=== PATIENT | female | born 1980 | race Caucasian/White ===

== ENCOUNTER 2016-05-31 15:18 | Emergency (ER) | payer BC ==
--- NOTE | 2016-06-08 18:52 | ER ---
ADMIT: 05/31/2016 RM/LOC: ER [facility] MR#: [id number] [id number] [place], [place] [address] CHANDNI ISSA [address] [place] [address] Emergency Room Report SEX: F AGE: 36 : 1980 DATE: 05/31/2016 ADDENDUM: The patient comes into the ER because she states she has had vomiting and diarrhea and abdominal pain for the last week. Since she has had her gallbladder out, it is normal for her to have diarrhea, but the vomiting and nausea are different. She has had an ovarian cyst in the past, and this is what it reminds her of. The pain she has is on the left side of her abdomen. She denies any fevers. On physical exam, she is tender in the left lower quadrant. No rebound tenderness or guarding. No tenderness to percussion from either flank area. Ultrasound was negative for an ovarian torsion and CAT scan was negative for diverticulitis. Her white count was 11.4. She did have ketones in her urine. IV of normal saline was started. She was given 1 L of bolus with Zofran and Toradol. I did let her know the results of the labs. I wrote a prescription for Zofran. If she is not feeling better in the next couple of days, she will need to follow up with Dr. Dominguez. Please see my T-sheet. ULISES Suarez / Jamison Estes MD / luis daniell JOB #: [id number] CC: Jamison Estes MD, Attending Physician Dr. Dominguez, Family Physician
== END 2016-05-31 19:10 | disposition home or self-care (01) ==
LOC: ER 15:18
DX: R10.32 Left lower quadrant pain (principal); F17.210 Nicotine dependence, cigarettes, uncomplicated; Z88.1 Allergy status to other antibiotic agents; Z88.8 Allergy status to other drugs, medicaments and biological substances; Z79.899 Other long term (current) drug therapy

== ENCOUNTER 2016-08-05 18:40 | Emergency (ER) | payer SELFPAY ==
--- NOTE | 2016-08-08 13:48 | ER ---
ADMIT: 08/05/2016 RM/LOC: ER [facility] MR#: [id number] [address] [place], [place] [address] CHANDNI ISSA [address] [place] [address] Emergency Room Report SEX: F AGE: 36 : 1980 DATE: 08/05/2016 CHIEF COMPLAINT: Headache. HISTORY OF PRESENT ILLNESS: This is a 36-year-old, white female, who presents with 2 days of worsening headache. States she has been managing this headache for the past 2 days with Tylenol and ibuprofen, acutely worse. Today, rates it a 10/10, describes it as the worst of her life. Gradual onset, woke her up from sleep. Does feel very similar to her previous headache. States she has a migraine disorder associated with some nausea, sensitivity to light and movement. No fevers, chills, or problems with vision. No aura. No neck pain, weakness, numbness or tingling in the extremities. COURSE IN THE EMERGENCY ROOM: The patient was seen and examined. GENERAL: Afebrile and nontoxic. No acute distress. She is alert. HEENT: Extraocular muscles are intact. Pupils are equal and reactive. She does have some photophobia. NECK: Soft and supple. She has good range of motion. CHEST: Clear. HEART: Regular rate and rhythm. ABDOMEN: Soft and nontender. SKIN: Warm and dry. EXTREMITIES: Nontender. No pedal edema. NEURO: She is alert and oriented x4. She has normal speech. Mood and affect are appropriate. She is cooperative with exam, somewhat restless secondary to the pain. Cranial nerves are normal as tested. No facial palsies, numbness, or tongue deviation. She does have normal gait. Motor and sensation are intact in the upper lower extremities compared bilaterally. DIAGNOSTIC DATA: I did get a CT of her head while in the department as this has described as worst headache of her life. Negative findings on this exam today. She did get an IV started. She was given a liter of normal saline as well as 2 g of IV magnesium piggyback. She was given 15 mg of IV Toradol as well as Reglan 10 mg IV, continued to be quite restless, was given 1 mg of Ativan IV, currently rating her headache 4 to 5/10. Ready for discharge. ADMIT: 08/05/2016 RM/LOC: ER [facility] MR#: [id number] [address] [address] CHANDNI ISSA Mat[address] [place] [address] Emergency Room Report SEX: F AGE: 36 : 1980 IMPRESSION: Headache. DISPOSITION: The patient was discharged home. Continue to use ibuprofen and Tylenol as needed for pain. Return home and rest. Increase fluids as tolerated. Certainly return with any worsening signs or symptoms or follow up with Dr. Dominguez. I do think she would benefit from starting some abortive therapy if this truly is migraine headaches, although it does not sound like she has ever been formally diagnosed. They were encouraged to follow up with Dr. Dominguez to possibly look into further headache workup. Questions sought and answered to the best of my ability and to the patient's satisfaction. Discharged in stable condition. ULISES Schafer / Bogdan Grady MD / chester JOB #: [id number] CC: Arpan Anaya MD, Attending Physician Althea Dominguez MD, Family Physician
== END 2016-08-05 20:55 | disposition home or self-care (01) ==
LOC: ER 18:40
DX: R51 Headache (principal); G40.909 Epilepsy, unspecified, not intractable, without status epilepticus; F17.200 Nicotine dependence, unspecified, uncomplicated; Z98.890 Other specified postprocedural states; Z88.8 Allergy status to other drugs, medicaments and biological substances